=== PATIENT | female | born 1980 | race African-American/Black ===

== ENCOUNTER 2017-03-07 11:33 | Emergency (ER) | payer OTHER ==
[2017-03-07 11:48] LABS: #Eosinphils 0.1 thou/uL (0.0-0.7); #Lymphocytes 1.6 thou/uL (1.20-3.40); #Monocytes 1.2 thou/uL (0.11-0.59); #Neutrophils 16.7 thou/uL (1.40-6.50); %Basophils 0.2 % (0.0-1.0); %Eosinophils 0.4 % (0.0-10.0); %Lymphocytes 8.1 % (21.0-51.0); %Monocytes 6.1 % (0.0-10.0); Mean Platelet Volume 10.1 fL (7.4-10.4); Red Blood Cell (RBC) Count 4.13 mill/uL (4.20-5.40); White Blood Cell (WBC) Count 19.7 thou/uL (4.8-10.8)
[2017-03-07 11:54] LABS: PTT 26.3 SEC (22.9-36.1); Prothrombin Time 16.9 SEC (12.0-14.7)
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
[2017-03-07 12:01] LABS: ALT (SGPT) 11 U/L (8-55); AST (SGOT) 22 U/L (5-34); Alkaline Phosphatase 44 U/L (40-150); Anion Gap 19 mmol/L (10-20); BUN (Urea Nitrogen) 8 mg/dL (7.0-18.7); Bilirubin, Total 0.8 mg/dL (0.2-1.2); Calc. Creatinine Clearance 0 mL/min (70-130); Calcium 9.6 mg/dL (7.8-10.44); Carbon Dioxide 16 mmol/L (22-29); Estimated GFR-MDRD Greater than 90; Globulin 3.2 g/dL (2.4-3.5); Protein, Total 7.4 g/dL (6.0-8.3)
[2017-03-07 12:04] LABS: Chloride 104 mmol/L (98-107)
[2017-03-07 12:05] LABS: Troponin I Less than 0.010 ng/mL (< 0.028)
[2017-03-07 12:19] LABS: Acetaminophen Less than 6.0 mcg/mL (10.0-30.0); Salicylate Less than 8.0 mg/dL (15.0-30.0)
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
[2017-03-07 12:58] LABS: Bilirubin Negative (Negative); Blood, Urine Large (Negative); Glucose, Urine (Dipstick) Negative (Negative); Ketone, Urine 15 mg/dL (Negative); Nitrite Negative (Negative); Protein, Urine (Dipstick) 300 mg/dL (Neg-Trace)
[2017-03-07 13:01] LABS: Bacteria/HPF 1+ HPF (None Seen); RBC/HPF 0-3 HPF (0-3)
[2017-03-07 13:10] LABS: Amphetamine Not Detected (NotDetected); Methadone Not Detected (NotDetected); Methamphetamine Not Detected (NotDetected)
[2017-03-07 13:11] LABS: Hyaline Casts/LPF 0-3 HYALINE CAST LPF (0-3 Hyaline); Renal Epithelial None Seen HPF (0-3); Transitional Epithelial 0-3 HPF (0-3)
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
== END 2017-03-07 13:30 | disposition home or self-care (01) ==
LOC: ERS 11:33
DX: S09.93XA Unspecified injury of face, initial encounter (principal); J45.909 Unspecified asthma, uncomplicated; F17.210 Nicotine dependence, cigarettes, uncomplicated; Y09 Assault by unspecified means
CPT/HCPCS: 51701; 70450; 70486; 71010; 72125; 72170; 80053; 80306; 80307; 81003; 81015; 81025; 82553; 83690; 84484; 84703; 85025; 85610; 85730; A4353; G0390

== ENCOUNTER 2017-04-24 08:19 | Emergency (ER) | payer OTHER ==
[2017-04-24 09:44] LABS: Bilirubin Negative (Negative); Blood, Urine Negative (Negative); Clarity CLEAR (Clear); Glucose, Urine (Dipstick) Negative (Negative); Leukocyte Negative (Negative); Nitrite Negative (Negative); Pregnancy Test - Urine (BHCG) POSITIVE (Negative); Protein, Urine (Dipstick) Negative (Neg-Trace); Specific Gravity, Urine 1.013 (1.002-1.036)
[2017-04-24 09:45] LABS: Pregu Control Background? CLEAR/WHITE (CLR/WHITE); Pregu Control Bar Appear? YES (CONTROL BAR); Specific Gravity 1.013 (1.002-1.036)
--- NOTE | 2017-04-24 10:49 | ULT ---
LIMITED OB ULTRASOUND: HISTORY: A 36-year-old patient with dysuria. FINDINGS: A single live intrauterine gestation is seen with measurements corresponding to an estimated gestatio nal age of 15 weeks and 4 days and an ROSEMARIE of 10/12/2017. measurements are as follows: BPD: 2.97 cm (15 weeks and 3 days) HC: 11.45 cm (15 weeks and 4 days) AC: 9.55 cm (15 weeks and 5 days) FL: 2.11 cm (16 weeks and 2 days) heart rate measures 137 beats per minute. Amniotic fluid is adequate. Placenta is anteriorly located without evidence of placenta previa. IMPRESSION: Single live intrauterine at 15 weeks and 4 days estimated gestational age with estimated da te of delivery at 10/12/2017. POS: [facility]
== END 2017-04-24 11:17 | disposition home or self-care (01) ==
LOC: ERS 08:19
DX: O99.89 Other specified diseases and conditions complicating pregnancy, childbirth and the puerperium (principal); R10.2 Pelvic and perineal pain; O99.512 Diseases of the respiratory system complicating pregnancy, second trimester; J45.909 Unspecified asthma, uncomplicated; O99.332 Smoking (tobacco) complicating pregnancy, second trimester; F17.210 Nicotine dependence, cigarettes, uncomplicated; Z3A.14 14 weeks gestation of pregnancy
CPT/HCPCS: 36415; 76815; 81003; 81025; 84702

== ENCOUNTER 2017-10-05 22:04 | Inpatient (IN) | payer OTHER ==
--- NOTE | 2017-10-05 22:35 | PDOC.EVN ---
Event Note - Event Note Event Note: S/P of breech in ER. Taken to L&D. BP= 118/73, P= 75. Cord blood obtained. Placenta delivered spontaneously, intact. Pitocin 10 units IM given. To recover in L&D. Baby to NBN.
[2017-10-05] MEDS ORDERED: HYDROcodone/Acetaminophen 5/325 mg Tablet PO PRN ×2 (22:36)
[2017-10-05] MEDS ORDERED: Ibuprofen 800 MG TAB PO PRN (22:36)
[2017-10-05] MEDS ORDERED: Butorphanol Tartrate 1 MG/ML VIAL SLOW IVP PRN (22:36)
[2017-10-05] MEDS ORDERED: Promethazine HCl 25 MG/ML VIAL IM PRN (22:36)
[2017-10-05] MEDS ORDERED: Lidocaine 1% (PF) 30 ML VIAL SC PRN (22:36)
[2017-10-05] MEDS ORDERED: Ondansetron HCl/PF 4 MG/2 ML Vial IVP PRN (22:36)
[2017-10-05] MEDS ORDERED: Zolpidem Tartrate 5 MG TAB PO PRN (22:36)
[2017-10-05 23:03] LABS: Hemoglobin 12.5 g/dL (12.0-16.0); Mean Corpuscular HGB CONC 33.1 g/dL (32.0-36.0); Mean Corpuscular Hemoglobin 32.7 pg (27.0-31.0); Mean Corpuscular Volume 98.8 fl (81.0-99.0); Mean Platelet Volume 10.4 fL (7.4-10.4); Platelet Count 121 thou/uL (130-400); Red Blood Cell (RBC) Count 3.84 mill/uL (4.20-5.40); White Blood Cell (WBC) Count 11.4 thou/uL (4.8-10.8)
[2017-10-05 23:32] VITALS: BMI 23.1
[2017-10-05 23:33] LABS: HBSAB Concentration 1.16 mIU/mL; Hep B Surf AB Non-Reactive (NonReactive); Hep B Surf Ag Non-Reactive S/CO (NonReactive)
[2017-10-05] MEDS ORDERED: Oxytocin 10 UNITS/ML VIAL ONE (23:51)
[2017-10-05 23:58] LABS: Syphilis Antibody Index 4.55 S/CO (<1.00 Non-Reactive)
[2017-10-06 02:10] LABS: Amphetamine Not Detected (NotDetected); Barbiturates Screen Not Detected (NotDetected); Benzodiazepine Screen Not Detected (NotDetected); Cocaine Metabolite Screen Not Detected (NotDetected); Medtox Control Line Valid? VALID (VALID); Medtox Reader # READER 4; Methadone Not Detected (NotDetected); Methamphetamine Not Detected (NotDetected); Opiate Screen Not Detected (NotDetected); Oxycodone Screen Not Detected (NotDetected); Phencyclidine (PCP) Detected (NotDetected); THC/Cannabinoid Screen Not Detected (NotDetected); Tricyclic Screen Not Detected (NotDetected)
--- NOTE | 2017-10-06 04:51 | HP ---
DATE OF ADMISSION: 10/05/2017 ADMITTING PHYSICIAN: Joselito Andrea M.D. CHIEF COMPLAINT: 'labor pains" HISTORY OF PRESENT ILLNESS: Ms. Zhu is a 37-year-old black, G5, now P5, with a reported EDC of 10/16/2017, who rapidly delivered a breech infant in the ER. She had had one episode of care at the [facility] in [place]. PAST OBSTETRICAL HISTORY: Unremarkable vaginal deliveries x4. PAST MEDICAL HISTORY: None. CURRENT MEDICATIONS: None. ALLERGIES: None. PAST SURGICAL HISTORY: None. SOCIAL HISTORY: Denies tobacco, alcohol, or drug use. FAMILY HISTORY: Denies pelvic malignancy. PHYSICAL EXAMINATION: VITAL SIGNS: Initial vital signs in labor and delivery show a blood pressure of 118/73 and a pulse of 75. LUNGS: Chest is clear to auscultation. CARDIOVASCULAR: Regular rate and rhythm. ABDOMEN: Gravid with the fundus at the umbilicus. The placenta remained intact. No heavy vaginal bleeding is seen. ASSESSMENT: 1. Status post term breech delivery in the ER. 2. Placenta remains undelivered. PLAN: The patient will be taken to labor and delivery for delivery of the placenta and then she will have routine care here. RAYD
--- NOTE | 2017-10-06 05:55 | PDOC.PP ---
Post Progress Note Post Day #: PPD#1 Subjective: Resting. No complaints. PO intake tolerated: yes Ambulation: yes Vital Signs (12 hours) Temp Pulse Resp 10/06/17 04:00 98.0 F 72 18 10/06/17 01:15 98.0 F 72 18 - Physical Examination General: NAD Respiratory: non-labored breathing Fundus firm & at: umbilicus Result Diagrams: 10/05/17 22:53 Additional Labs: Post Labs Blood Type A POSITIVE 10/05/17 22:53 Hep Bs Antigen Non-Reactive S/CO (NonReactive) 10/05/17 22:53 - Assessment/Plan S/p of breech in ER +UDS for PCP Case Mgmt consult ordered. Routine PP care.
[2017-10-06 11:04] LABS: HIV (1/2) Antibody/Antigen Non-Reactive (NonReactive); HIV 1/2 INDEX 0.11 S/CO (<1.00)
[2017-10-06 12:05] LABS: Syphilis Antibody INDETERMINATE (Nonreactive); Syphilis Titer Non-Reactive (Negative)
[2017-10-06] MEDS ORDERED: Ibuprofen 800 MG TAB PO PRN (15:45)
[2017-10-07 05:09] LABS: Hemoglobin 10.7 g/dL (12.0-16.0); Mean Corpuscular HGB CONC 33.5 g/dL (32.0-36.0); Mean Corpuscular Hemoglobin 32.8 pg (27.0-31.0); Mean Platelet Volume 10.4 fL (7.4-10.4); Platelet Count 111 thou/uL (130-400); RBC Distribution Width 13.1 % (11.5-14.5); Red Blood Cell (RBC) Count 3.28 mill/uL (4.20-5.40); White Blood Cell (WBC) Count 9.3 thou/uL (4.8-10.8)
[2017-10-07 11:07] VITALS: BP 112/71; TEMP 98.5
--- NOTE | 2017-10-07 11:57 | DIS ---
DATE OF ADMISSION: 10/05/2017 DATE OF DISCHARGE: 10/07/2017 ADMITTING DIAGNOSES: 1. No care. 2. Precipitous breech delivery in the emergency room at term. 3. Positive drug screen. DISCHARGE DIAGNOSES: 1. No care. 2. Precipitous breech delivery in the emergency room at term. 3. Positive drug screen. PROCEDURE: Precipitous double footling delivery in the emergency room. CONSULTATIONS: None. HOSPITAL COURSE: The patient is a 37-year-old G5, now P5 female, who presented to the emergency room in active labor and was noted to have feet protruding from her vagina at presentation. Baby delivered breech in emergency room with the emergency staff prior to labor and delivery staff arriving. The patient was then transferred to Labor and Delivery where the delivery placenta was performed and recovery was handled. Her care has otherwise been uncomplicated. Today is hospital day #2. The patient has no complaints. She is tolerating p.o., voiding on her own, having decreased lochia and good pain control. PHYSICAL EXAMINATION: VITAL SIGNS: Today temperature 97.8, pulse of 65, respiratory rate of 20, blood pressure 115/64. GENERAL: She appears to be in no acute distress. She is alert and oriented, cooperative and pleasant to interact with. HEENT: Normocephalic, atraumatic. ABDOMEN: Soft. Fundus is firm. EXTREMITIES: Nontender, nonedematous. The patient is being discharged to home. She has instructions to follow up with [facility] [place] in 6 weeks for her visit as the patient has had no care up to now. She has also been given instructions to seek medical attention sooner if she experiences fever, increasing pain or bleeding as these may be signs of an infection. The patient is being discharged to home with Motrin to be taken as needed for pain. BETZAIDA
== END 2017-10-07 20:35 | disposition home or self-care (01) | DRG 775 ==
LOC: ERS 22:04 → L&D/OP 22:24 → L&D 22:52 → 3SW 10-06 01:14
PROVIDERS: ADMIT Obstetrics & Gynecology; ATTEND Obstetrics & Gynecology
PROC: 10E0XZZ Delivery of Products of Conception, External Approach (ICD-10-PCS; principal; 2017-10-05)
DX: O32.8XX0 Maternal care for other malpresentation of fetus, not applicable or unspecified (principal); F16.20 Hallucinogen dependence, uncomplicated; O99.324 Drug use complicating childbirth; Z3A.00 Weeks of gestation of pregnancy not specified; O62.3 Precipitate labor; O69.81X0 Labor and delivery complicated by cord around neck, without compression, not applicable or unspecified; Z37.0 Single live birth
CPT/HCPCS: 36415; 59409; 80306; 85027; 86593; 86706; 86762; 86780; 86850; 86900; 86901; 87340; 87389; 88307; J2590

== ENCOUNTER 2017-10-14 23:44 | Emergency (ER) | payer OTHER ==
[2017-10-15 00:11] LABS: Bilirubin Negative (Negative); Blood, Urine Large (Negative); Clarity CLEAR (Clear); Glucose, Urine (Dipstick) Negative (Negative); Leukocyte Large (Negative); Nitrite Negative (Negative); Protein, Urine (Dipstick) Negative (Neg-Trace); Specific Gravity, Urine 1.007 (1.002-1.036)
[2017-10-15 00:13] LABS: Bacteria/HPF None Seen HPF (None Seen); Hyaline Casts/LPF 0-3 HYALINE CAST LPF (0-3 Hyaline); Squamous Epithelial 0-3 HPF (0-3)
[2017-10-15 00:15] LABS: #Eosinphils 0.1 thou/uL (0.0-0.7); #Lymphocytes 2.2 thou/uL (1.20-3.40); #Monocytes 0.7 thou/uL (0.11-0.59); #Neutrophils 4.9 thou/uL (1.40-6.50); %Basophils 0.4 % (0.0-1.0); %Eosinophils 1.8 % (0.0-10.0); %Lymphocytes 28.2 % (21.0-51.0); %Monocytes 8.3 % (0.0-10.0); %Neutrophils 61.3 % (42.0-75.0); Mean Corpuscular HGB CONC 33.9 g/dL (32.0-36.0); Mean Corpuscular Hemoglobin 33.5 pg (27.0-31.0); Mean Corpuscular Volume 98.8 fL (78.0-98.0); Mean Platelet Volume 8.9 fL (7.4-10.4); Platelet Count 147 thou/uL (130-400); RBC Distribution Width 12.4 % (11.5-14.5); Red Blood Cell (RBC) Count 3.88 mill/uL (4.20-5.40); White Blood Cell (WBC) Count 7.9 thou/uL (4.8-10.8)
[2017-10-15 00:21] LABS: Medtox Reader # READER 4; THC/Cannabinoid Screen Not Detected (NotDetected)
[2017-10-15 00:22] LABS: Amphetamine Not Detected (NotDetected); Barbiturates Screen Not Detected (NotDetected); Benzodiazepine Screen Not Detected (NotDetected); Cocaine Metabolite Screen Not Detected (NotDetected); Methadone Not Detected (NotDetected); Methamphetamine Not Detected (NotDetected); Opiate Screen Not Detected (NotDetected); Oxycodone Screen Not Detected (NotDetected); Tricyclic Screen Not Detected (NotDetected)
[2017-10-15 00:23] LABS: Medtox Control Line Valid? VALID (VALID); Phencyclidine (PCP) Detected (NotDetected)
[2017-10-15 00:35] LABS: ALT (SGPT) 20 U/L (8-55); AST (SGOT) 25 U/L (5-34); Acetaminophen Less than 6.0 mcg/mL (10.0-30.0); Alcohol 70 mg/dL (Less than 10); Alkaline Phosphatase 101 U/L (40-150); Anion Gap 12 mmol/L (10-20); BUN (Urea Nitrogen) 7 mg/dL (7.0-18.7); Bilirubin, Total 0.5 mg/dL (0.2-1.2); Calc. Creatinine Clearance 0 mL/min (70-130); Calcium 9.5 mg/dL (7.8-10.44); Carbon Dioxide 24 mmol/L (22-29); Chloride 109 mmol/L (98-107); Estimated GFR-MDRD Greater than 90; Globulin 3.6 g/dL (2.4-3.5); Glucose 89 mg/dL (70-105); Potassium 3.3 mmol/L (3.5-5.1); Protein, Total 7.6 g/dL (6.0-8.3); Salicylate Less than 8.0 mg/dL (15.0-30.0); Sodium 142 mmol/L (136-145)
== END 2017-10-15 02:51 | disposition home or self-care (01) ==
LOC: ERS 23:44
DX: F16.10 Hallucinogen abuse, uncomplicated (principal); F10.10 Alcohol abuse, uncomplicated; F32.9 Major depressive disorder, single episode, unspecified; J45.909 Unspecified asthma, uncomplicated; F17.210 Nicotine dependence, cigarettes, uncomplicated
CPT/HCPCS: 36415; 80053; 80306; 80307; 81003; 81015; 82550; 84443; 85025; 93005

== ENCOUNTER 2018-12-27 07:49 | Outpatient (CLI) | payer MEDICAID ==
--- NOTE | 2018-12-27 10:40 | ULT ---
OB ULTRASOUND: HISTORY: Evaluation of size and dates. FINDINGS: Real-time imaging of the pelvis shows a single viable intrauterine in a cephalic presentati on. Placenta is anterior in location without evidence of previa. The amniotic fluid shows an amniot ic fluid index of 9.5. Visually, the fluid is borderline low. heart rate is 156 b.p.m. Review of anatomy showed difficulty in visualizing the spine due to positioning. Also, e lements of the brain were also difficult to visualize due to positioning. No anomalies were detected . measurements are as follows: BPD 7.9 cm, 31 weeks 5 days Head circumference: 29.2 cm, 32 weeks 2 days Abdominal circumference: 26.9 cm, 31 weeks 0 days Femur length 6.1 cm, 31 weeks 4 days IMPRESSION: 1. Single viable intrauterine in a cephalic presentation overall measurements correspondin g to a gestation age of 31 weeks 5 days, estimated date of delivery 02/23/2019. 2. Placenta which is anterior in location without evidence of previa. 3. Estimated weight of 750 +/- 260 gm. POS: [facility]
== END 2018-12-27 07:50 | disposition home or self-care (01) ==
LOC: BICULT 07:49
DX: O09.523 Supervision of elderly multigravida, third trimester (principal); Z3A.31 31 weeks gestation of pregnancy
CPT/HCPCS: 76805

== ENCOUNTER 2019-02-08 03:37 | Inpatient (IN) | payer OTHER ==
[2019-02-08] MEDS ORDERED: Ibuprofen 800 MG TAB PO PRN (03:50)
[2019-02-08] MEDS ORDERED: Promethazine HCl 25 MG/ML VIAL IM PRN (03:50)
[2019-02-08] MEDS ORDERED: Methylergonovine 0.2 MG/ML VIAL IM PRN ×2 (03:50→04:00)
[2019-02-08] MEDS ORDERED: Lidocaine 1% (PF) 30 ML VIAL SC PRN (03:50)
[2019-02-08] MEDS ORDERED: HYDROcodone/Acetaminophen 5/325 mg Tablet PO PRN ×4 (03:50→05:42)
[2019-02-08] MEDS ORDERED: Acetaminophen 500 MG TAB PO PRN ×2 (03:50→04:01)
[2019-02-08] MEDS ORDERED: hydrALAZINE 20 MG/ML VIAL SLOW IVP PRN ×2 (03:50→04:00)
[2019-02-08] MEDS ORDERED: Misoprostol 200 MCG TAB PR PRN (03:50)
[2019-02-08] MEDS ORDERED: Ondansetron PF 4 MG/2 ML Vial IVP PRN ×2 (03:50→04:00)
[2019-02-08] MEDS ORDERED: NS / Oxytocin 40 units/1000ml 1,000 ML IV PRN (03:50)
[2019-02-08] MEDS ORDERED: Diphenoxylate HCl/Atropine Tablet PO PRN ×2 (03:50)
[2019-02-08] MEDS ORDERED: Carboprost 250 MCG/ML AMP IM PRN (03:50)
--- NOTE | 2019-02-08 03:55 | PDOC.LDHP ---
Labor and Delivery H&P Chief complaint: other (delivered at home) HPI: 38 y/o at 37w6d based on 31 week ultrasound who is s/p precipitous delivery of a viable female at about 3:00am. Patient reports she woke up and was uncomfortable, and proceeded to deliver her prior to EMS arrival. Denies other complaints. Placenta remains en utero. Reports care from Dr. Paulino. ROS neg for HEENT, cv, pulm, gi, gu, neuro, psych, skin, musculoskeletal or constitutional symptoms other than mentioned above. OB History Details: 5 prior term SVDs Current complications: none Past Medical History: Denies Current medications: pre-max vitamins Previous surgical history: none Allergies/Adverse Reactions: Allergies Allergy/AdvReac Type Severity Reaction Status Date / Time No Known Drug Allergies Allergy Verified 10/05/17 23:25 Social history: drug use (hx PCP with prior ) - Physical Exam Vital signs reviewed and normal: yes General: NAD, resting Lungs: nonlabored breathing Abdomen: NTTP - OB Labs Blood type: A RH: positive - Assessment L&D Assessment: term patient in labor (s/p precipitous delivery at home) - Plan Plan: admit to L&D, informed consent obtained -: Dr. Paulino turns care over to [facility] Will deliver placenta and examine for lacerations UDS for hx drug use Case management consult for late onset of care, hx drug use
[2019-02-08] MEDS ORDERED: NS / Oxytocin 40 units/1000ml 1,000 ML IV SCH (04:00)
[2019-02-08] MEDS ORDERED: Preparation H Ointment 28 GM TUBE PR PRN (04:00)
[2019-02-08] MEDS ORDERED: Benzocaine-Menthol 82.5 ML CAN TOP PRN (04:00)
[2019-02-08] MEDS ORDERED: Milk Of Magnesia 30 ML UDCUP PO PRN (04:00)
[2019-02-08] MEDS ORDERED: Lactated Ringer's 1,000 ML IV SCH (04:00)
[2019-02-08] MEDS ORDERED: Misoprostol 200 MCG TAB VAG PRN (04:00)
[2019-02-08] MEDS ORDERED: diphenhydrAMINE 25 MG CAP PO PRN (04:00)
[2019-02-08] MEDS ORDERED: Bisacodyl 10 MG SUPP PR PRN (04:00)
--- NOTE | 2019-02-08 04:00 | PDOC.OPDEL ---
OB Operative/Delivery Note Delivery Dr/Surgeon: Sarita Pre-Delivery Diagnosis: active labor (precipitous delivery at home) Procedure/Post Delivery Dx: spontaneous vaginal delivery Weeks gestation: 37 Anesthesia: none - Findings A Sex: female Weight: 6 lb 0.651 oz - 1 min: 9 - 5 min: 10 - Additional Findings/Plan Placenta delivered: spontaneous (delivered in hospital) Repaired Obstetrical Laceration: 1st degree Estimated blood loss: 50 Post delivery plan: routine recovery
[2019-02-08 04:09] VITALS: BMI 25.0
[2019-02-08] MEDS: Ibuprofen 800 MG TAB PO SCH ×3 (04:32→21:32)
[2019-02-08 05:46] LABS: Hemoglobin 12.8 g/dL (12.0-16.0); Mean Corpuscular HGB CONC 34.2 g/dL (32.0-36.0); Mean Corpuscular Hemoglobin 33.2 pg (27.0-31.0); Mean Corpuscular Volume 97.2 fL (78.0-98.0); Mean Platelet Volume 11.6 fL (7.4-10.4); Platelet Count 104 thou/uL (130-400); RBC Distribution Width 12.6 % (11.5-14.5); Red Blood Cell (RBC) Count 3.86 mill/uL (4.20-5.40); White Blood Cell (WBC) Count 11.3 thou/uL (4.8-10.8)
[2019-02-08 05:49] LABS: HBSAg Index 0.14 S/CO (0-0.99); HIV (1/2) Antibody/Antigen Non-Reactive (NonReactive); HIV 1/2 INDEX 0.07 S/CO (<1.00); Hep B Surf Ag Non-Reactive S/CO (NonReactive)
[2019-02-08 06:39] LABS: Amphetamine Not Detected (NotDetected); Barbiturates Screen Not Detected (NotDetected); Benzodiazepine Screen Not Detected (NotDetected); Cocaine Metabolite Screen Not Detected (NotDetected); Medtox Control Line Valid? VALID (VALID); Medtox Reader # READER 4; Methadone Not Detected (NotDetected); Methamphetamine Not Detected (NotDetected); Opiate Screen Not Detected (NotDetected); Oxycodone Screen Not Detected (NotDetected); Phencyclidine (PCP) Detected (NotDetected); THC/Cannabinoid Screen Not Detected (NotDetected); Tricyclic Screen Not Detected (NotDetected)
[2019-02-08 06:47] LABS: Syphilis Antibody Index 4.33 S/CO (<1.00 Non-Reactive)
[2019-02-08 08:32] LABS: Syphilis Antibody INDETERMINATE (Nonreactive)
[2019-02-08] MEDS ORDERED: Measles/Mumps/Rubella 10 MCG/0.5 ML VIAL SC ONE (09:00)
[2019-02-08] MEDS ORDERED: Adacel (T-DAP) 0.5 ML SYRINGE IM ONE (09:00)
[2019-02-08] MEDS ORDERED: Varicella virus, LIVE 0.5 ML VIAL SC ONE (09:00)
[2019-02-08] MEDS: Docusate Calcium (SURFAK) 240 MG CAP PO SCH ×2 (12:15→21:32)
[2019-02-08] MEDS: Ferrous Sulfate 325 MG TAB PO SCH ×2 (12:15→19:45)
[2019-02-09] MEDS: Ibuprofen 800 MG TAB PO SCH ×3 (06:22→21:22)
[2019-02-09] MEDS: Ferrous Sulfate 325 MG TAB PO SCH ×2 (08:53→16:57)
[2019-02-09] MEDS: Docusate Calcium (SURFAK) 240 MG CAP PO SCH ×2 (09:15→21:22)
[2019-02-10] MEDS: Ibuprofen 800 MG TAB PO SCH ×2 (05:33→14:31)
[2019-02-10 07:37] VITALS: BP 117/80; TEMP 98.4
[2019-02-10] MEDS: Docusate Calcium (SURFAK) 240 MG CAP PO SCH (08:04)
[2019-02-10] MEDS: Ferrous Sulfate 325 MG TAB PO SCH (08:04)
== END 2019-02-10 21:15 | disposition home or self-care (01) | DRG 807 ==
LOC: L&D 03:37 → 3SE 14:41
PROVIDERS: ADMIT Family Medicine; ATTEND Family Medicine
PROC: 10E0XZZ Delivery of Products of Conception, External Approach (ICD-10-PCS; principal; 2019-02-08)
PROC: 0HQ9XZZ Repair Perineum Skin, External Approach (ICD-10-PCS; 2019-02-08)
DX: O70.0 First degree perineal laceration during delivery (principal); Z37.0 Single live birth; Z3A.37 37 weeks gestation of pregnancy
CPT/HCPCS: 36415; 80306; 85027; 86593; 86780; 86850; 86900; 86901; 87340; 87389; 90707; 90715; 99285

== ENCOUNTER 2020-08-22 23:31 | Emergency (ER) | payer OTHER, SELFPAY ==
[2020-08-23 00:39] LABS: Pregnancy Test - Urine (BHCG) Negative (Negative)
[2020-08-23 00:40] LABS: Bilirubin Negative (Negative); Blood, Urine Negative (Negative); Clarity Clear (Clear); Glucose, Urine (Dipstick) Normal (Negative); Ketone, Urine 10 mg/dL (Negative); Leukocyte Negative Leu/uL (Negative); Nitrite Negative (Negative); Pregu Control Background? CLEAR/WHITE (CLR/WHITE); Pregu Control Bar Appear? YES (CONTROL BAR); Protein, Urine (Dipstick) Negative (Neg-Trace); Specific Gravity 1.011 (1.002-1.036); Specific Gravity, Urine 1.012 (1.002-1.036); Urobilinogen Normal mg/dL (Less than 2); pH, Urine 5.5 (5.0-9.0)
[2020-08-23 10:55] LABS: SARS-CoV-2 PCR by NAA Not Detected (NotDetected)
== END 2020-08-23 01:17 | disposition home or self-care (01) ==
LOC: ERS 23:31
DX: M62.81 Muscle weakness (generalized) (principal); J45.909 Unspecified asthma, uncomplicated; D64.9 Anemia, unspecified; F17.210 Nicotine dependence, cigarettes, uncomplicated
CPT/HCPCS: 81003; 81025; 87635; 99283; U0003; U0005

== ENCOUNTER 2024-12-02 16:59 | Emergency (ER) | payer OTHER ==
[~2024-12-02 16:59] MED LIST: Iopamidol 370 76% 100 ML VIAL ONE
[2024-12-02 17:25] LABS: #Basophils 0.07 10x3/uL (0.0-0.2); #Eosinophils 0.11 10x3/uL (0.0-0.7); #Monocytes 0.59 10x3/uL (0.11-0.59); #Neutrophils 3.95 10x3/uL (1.40-6.50); %Basophils 0.9 % (0.0-1.0); %Eosinophils 1.3 % (0.0-10.0); %Lymphocytes 42.3 % (21.0-51.0); %Monocytes 7.2 % (0.0-10.0); %Neutrophils 48.1 % (42.0-75.0); Hematocrit 40.4 % (36.0-47.0); Hemoglobin 13.2 g/dL (12.0-16.0); Mean Corpuscular Hemoglobin 30.8 pg (27.0-31.0); Mean Corpuscular Volume 94.4 fL (78.0-98.0); Platelet Count 250 10x3/uL (130-400); Red Blood Cell (RBC) Count 4.28 mill/uL (4.20-5.40); White Blood Cell (WBC) Count 8.22 10x3/uL (4.8-10.8)
[2024-12-02 17:42] LABS: BHCG - Serum Negative (NEGATIVE); Pregs Control Background? CLEAR/WHITE (CLR/WHITE); Pregs Control Bar Appear? YES (CONTROL BAR)
[2024-12-02 17:48] LABS: Acetaminophen Less than 10 mcg/mL (Less than 10); Salicylate Less than 8.0 mg/dL (Less than 8.0)
[2024-12-02 17:49] LABS: ALT (SGPT) 11 U/L (Less than 34); AST (SGOT) 27 U/L (11-34); Albumin 4.3 g/dL (3.1-4.5); Alkaline Phosphatase 73 U/L (40-110); Anion Gap 26 mmol/L (10-20); BUN (Urea Nitrogen) 15 mg/dL (7.0-18.7); Bilirubin, Total 0.4 mg/dL (0.3-1.2); Calc. Creatinine Clearance 0 mL/min (70-130); Calcium 9.0 mg/dL (7.8-10.44); Carbon Dioxide 15 mmol/L (22-29); Chloride 106 mmol/L (98-107); Globulin 3.8 g/dL (2.4-3.5); Glucose 124 mg/dL (70-105); Potassium 3.3 mmol/L (3.5-5.1); Sodium 144 mmol/L (136-145)
[2024-12-02 19:31] LABS: Cocaine Metabolite Screen Negative (Negative); THC/Cannabinoid Screen PRELIM POSITIVE (Negative); Tricyclic Screen Negative (Negative)
== END 2024-12-02 20:55 | disposition home or self-care (01) ==
LOC: ERS 16:59
DX: S00.03XA Contusion of scalp, initial encounter (principal); F19.90 Other psychoactive substance use, unspecified, uncomplicated; F17.210 Nicotine dependence, cigarettes, uncomplicated; Y04.8XXA Assault by other bodily force, initial encounter
CPT/HCPCS: 70450; 70486; 71260; 72125; 74177; 80053; 80306; 80307; 83605; 84703; 85025; 93005; 96374; J3010; Q9967